=== PATIENT | male | born 1935 | race Caucasian/White ===

== ENCOUNTER → 2020-10-15 | Outpatient (CLI) | payer OTHER ==
[2020-10-15 16:33] LABS: HEMOGLOBIN 12.1 gm/dl (14.0-17.5); RED BLOOD COUNT 4.42 M/UL (4.20-5.50); WHITE BLOOD COUNT 4.8 K/UL (4.5-11.0)
[2020-10-15 16:51] LABS: BUN/CREATININE RATIO 15 (0-10)
== END ==
LOC: LBRF 15:52
PROVIDERS: Family Medicine
DX: R41.82 Altered mental status, unspecified (principal); R45.1 Restlessness and agitation
CPT/HCPCS: 80053; 81001; 85025; 87086